=== PATIENT | male | born 1980 | race Caucasian/White ===

== ENCOUNTER 2020-10-27 07:08 | Day surgery (SDC) | payer BC, OTHER ==
[2020-10-21 15:21] LABS: BASOPHILS # (AUTO) 0.1 X10'3 (0-0.2); BASOPHILS % (AUTO) 1.4 % (0-1); EOSINOPHILS # (AUTO) 0.3 X10'3 (0-0.9); EOSINOPHILS % (AUTO) 4.9 % (0-6); LYMPHOCYTES # (AUTO) 1.8 X10'3 (1.1-4.8); LYMPHOCYTES % (AUTO) 34.5 % (21-51); MEAN CORPUSCULAR HEMOGLOBIN 30.4 PG (27.0-31.0); MEAN CORPUSCULAR HGB CONC 34.8 g/dL (33.0-36.5); MEAN CORPUSCULAR VOLUME 87.5 FL (78-98); MEAN PLATELET VOLUME 7.8 FL (7.4-10.4); MONOCYTES # (AUTO) 0.3 X10'3 (0-0.9); MONOCYTES % (AUTO) 6.7 % (2-12); NEUTROPHILS # (AUTO) 2.7 X10'3 (1.8-7.7); NEUTROPHILS % (AUTO) 52.5 % (42-75); PRE OP HEMATOCRIT 42.5 % (42.0-52.0); PRE OP HEMOGLOBIN 14.8 g/dL (14.0-17.9); PRE OP PLATELET COUNT 310 X10'3 (140-440); RED BLOOD COUNT 4.85 X10'6 (4.70-6.10); RED CELL DISTRIBUTION WIDTH 12.7 % (11.5-14.5)
[2020-10-21 15:36] LABS: ALBUMIN 3.9 G/DL (3.4-5.0); ALBUMIN/GLOBULIN RATIO 1.2 (1.1-1.5); ALKALINE PHOSPHATASE 84 IU/L (46-116); BLOOD UREA NITROGEN 9 MG/DL (7-18); BUN/CREATININE RATIO 9.3 (5.4-32.0); CALCIUM 8.6 MG/DL (8.5-10.1); CHLORIDE 104 MMOL/L (99-107); CREATININE 0.97 MG/DL (0.60-1.10); PRE OP ALT 48 U/L (30-65); PRE OP ANION GAP 7 (8-16); PRE OP AST 28 U/L (10-37); PRE OP BILIRUB, TOTAL 0.4 MG/DL (0.0-1.0); PRE OP GLUCOSE 150 MG/DL (70-104); PRE OP POTASSIUM 3.9 MMOL/L (3.4-5.1); PRE OP SODIUM 139 MMOL/L (135-145); TOTAL CARBON DIOXIDE 28.5 MMOL/L (24-32); TOTAL PROTEIN 7.1 G/DL (6.4-8.2); eGFR 86 ML/MIN
[2020-10-27] VITALS (9 sets, daily range): BP systolic 69–138; BP diastolic 66–87
[~2020-10-27] VITALS: Ht 190.5 cm; Wt 104.0 kg
[~2020-10-27 07:08] MED LIST: BUPIVAcaine/PF 2.5mg/ml (0.25%) 10ml vial ONE; INSULIN PUMP HUMALOG; LIDOcaine 1% 30ml preserv. free vial ONE; METH18TA23 PO; cefazolin/dext.iso 2gm/100ml IV ONE; famotidine 20mg tablet PO ONE; ringers solution, lacted 1,000 ML IV SCH
[2020-10-27] MEDS ORDERED: ringers solution, lacted 1,000 ML IV SCH (08:10)
[2020-10-27] MEDS ORDERED: ondansetron/PF 4mg/2ml inj IV PRN (08:10)
[2020-10-27] MEDS ORDERED: meperidine/PF 25mg/ml syringe IV PRN ×2 (08:10)
[2020-10-27] MEDS ORDERED: morphine 2 MG/ML inj. syringe IV PRN (08:10)
[2020-10-27] MEDS ORDERED: proCHLORperazine 10 MG/2 ml inj IV PRN (08:10)
[2020-10-27] MEDS ORDERED: morphine 4 MG/ML inj SYRINge IV PRN (08:10)
[2020-10-27] MEDS ORDERED: sevoflurane 250ml liquid IH ONE (08:35)
[2020-10-27] MEDS ORDERED: glycopyrrolate 0.2mg/ml inj ONE (08:35)
[2020-10-27] MEDS ORDERED: neostigmine methylsulfate 1 MG/ML 10ml vial ONE (08:35)
[2020-10-27] MEDS ORDERED: dexamethasone sod phosphate 10mg/ml inj ONE (08:35)
[2020-10-27] MEDS ORDERED: fentaNYL/PF 50MCG/1 ML 2ML syringe ONE (08:42)
[2020-10-27] MEDS ORDERED: midazolam 1 mg/ML 2ml injection ONE (08:42)
[2020-10-27] MEDS ORDERED: propofol inj 20 ML IV ONE (08:53)
[2020-10-27] MEDS ORDERED: LIDOcaine 2% (20mg/ml) 5ml vial ONE (08:53)
[2020-10-27] MEDS ORDERED: ondansetron/PF 4mg/2ml inj ONE ×2 (09:05→10:01)
[2020-10-27] MEDS ORDERED: rocuronium 10mg/ml inj IV ONE (09:05)
[2020-10-27] MEDS ORDERED: acetaminophen 1,000mg/100ml IV 100 ML IV ONE (09:39)
[2020-10-27] MEDS: meperidine/PF 25mg/ml syringe IV PRN ×2 (10:08→10:14)
[2020-10-27] MEDS ORDERED: HYDROcodone/acetaminophen 5mg/325mg tablet PO PRN ×2 (10:10)
--- NOTE | 2020-10-27 11:19 | NUR ---
PT VOID, BLADDER SCANNED POST VOID RESIDUAL 0 MLS. PT ABLE TO AMBULATE SAFELY, TOLERATING FLUIDS AND CRACKERS, NAUSEA RESOLVED, NORCO 5/325MG GIVEN FOR RIDE HOME. D/C INSTRUCTIONS GIVEN AND GONE OVER W/PT WHO VERBALIZED UNDERSTANDING. PT D/CD TO HOME VIA W/C TO PRIVATE VEHICLE W/O INCIDENT. Addendum: 10/27/20 at 1158 by Nereida Sevilla RN Amended: Links added.
== END 2020-10-27 11:19 | disposition home or self-care (01) ==
LOC: PAS 07:08
PROVIDERS: ATTEND Surgery
DX: K40.90 Unilateral inguinal hernia, without obstruction or gangrene, not specified as recurrent (principal); Z20.822 Contact with and (suspected) exposure to COVID-19; F41.9 Anxiety disorder, unspecified; E10.9 Type 1 diabetes mellitus without complications; F17.210 Nicotine dependence, cigarettes, uncomplicated; Z79.4 Long term (current) use of insulin; Z98.890 Other specified postprocedural states; Z96.41 Presence of insulin pump (external) (internal); Z86.14 Personal history of Methicillin resistant Staphylococcus aureus infection; Z79.899 Other long term (current) drug therapy; Z83.3 Family history of diabetes mellitus
CPT/HCPCS: 36415; 49650; 80053; 82948; 85025; 93005; C1781; J0131; J0780; J2001; J2175; J2250; J2405; J2704; J3010; J3490; S2900; U0003; U0005; Z7506; Z7508; Z7512; A4215; A4618; J1100; J2710; J7120

== ENCOUNTER 2024-09-25 14:55 | Emergency (ER) | payer OTHER ==
[~2024-09-25] VITALS: Ht 190.5 cm; Wt 113.5 kg
[~2024-09-25 14:55] MED LIST changes: -BUPIVAcaine/PF 2.5mg/ml (0.25%) 10ml vial ONE; -LIDOcaine 1% 30ml preserv. free vial ONE; +METH18TA PO; -METH18TA23 PO; -cefazolin/dext.iso 2gm/100ml IV ONE; -famotidine 20mg tablet PO ONE; -ringers solution, lacted 1,000 ML IV SCH
[2024-09-25 14:59] VITALS: BP 146/93; PULSE 73; RESP 16; TEMP 99.2; O2SAT 96
--- NOTE | 2024-09-25 15:30 | Physician Documentation ---
History of Present Illness ~ Chief Complaint: Neck pain Stated Complaint: NECK PAIN-WC Time Seen by MD: 15:14 HPI 44-year-old male presents to the ED with a worker's comp injury parents states he was walking out report of body and headache cross member wounds with the top of the head injury in his neck pain with range of motion Day of Onset: Sep 25, 2024 Medication Reconciliation Allergies: Coded Allergies: No Known Allergies (Unverified , 09/25/24) Scheduled Methylphenidate HCl (Methylphenidate ER), 1 TAB PO QAM, (Reported) Miscellaneous Medications [Insulin Pump Humalog], (Reported) Review of Systems All Other Systems at this time: Reviewed and Negative ROS As stated above in the HPI, otherwise all systems are reviewed and negative. Physical Exam Vital Signs: Temperature: 99.2, Source: Temporal, Heart Rate: 73, Respiratory Rate: 16, BP: 146/93, Pulse Oximetry: 96, Weight: 113.500 Physical Exam General: Alert, no apparent distress. Neck: Full range of motion. tender to Palpation in the left trapezius Respiratory: Lungs clear, no respiratory distress. Cardiovascular: Regular rate and rhythm, no murmurs. Extremities: Normal range of motion, no deformity. Neurologic: Oriented x4. Psychiatric: Normal mood and affect. Skin: Normal color, warm and dry. No edema, no ecchymosis. Progress Results/Orders Results/Orders Orders - JE UNGER [employer] Cervical Spine (09/25/24 15:31) Completed Orders - JE UNGER [employer] Cervical Spine (09/25/24 15:31) Ketorolac Trometh 15mg/Ml Vial (Toradol (09/25/24 15:35) Vital Signs 09/25/24 14:59 Temp 99.2 Pulse 73 Resp 16 B/P (MAP) 146/93 Pulse Ox 96 Medical Decision Making Findings CT scan showed no signs of acute fracture. Patient is not meet criteria for any red flag signs I offered Toradol ,patient refused states that he would rather take "salt water." Advised him to follow up with his worker's comp provider in the outpatient setting. Departure Disposition: HOME / SELF CARE / HOMELESS Impression: Primary Impression: Neck pain Additional Impressions: Strain of neck muscle Whiplash injury to neck Condition: Stable Discharge Instructions: Cervical Sprain, Whiplash Additional Instructions: Follow up with the worker's comp provider if you have any worsening symptoms or persistent symptoms that require further evaluation. Referrals: NO PRIMARY CARE PROVIDER (PCP) Signature Scribe Signature: t Attestation: Scribed for Je [employer]ger [employer] by Je Gaston NP . 09/25/24 22:54 JE UNGER NP Sep 25, 2024 15:30
[2024-09-25] MEDS: ketorolac trometh 15mg/ml vial 15 MG/ML ML IM ONE (15:54)
--- NOTE | 2024-09-25 15:59 | RADIOLOGY REPORT ---
EXAM: CT CT CERVICAL SPINE INDICATION: neck injury EXAM DATE: 09/25/2024 03:26 PM COMPARISON: None TECHNIQUE: Multiple axial CT images of the cervical spine were obtained using bone algorithm. Axial a nd coronal reformatting was done. Bone and soft tissue windows were reviewed. Radiation Dose Information: CT Dose: CTDI volume is 21.16 mGy. Dose-length product is 574.49 mGy*cm Findings: There is no evidence of an acute fracture or spondylolisthesis. The vertebral body heights are well-m aintained. The craniocervical junction and dens are intact. No evidence of degenerative disc disease. No neuroforaminal narrowing. No spinal canal stenosis. There is flattening of the cervical lordosis. The thyroid gland is unremarkable. The lung apices demonstrate no acute abnormality. The paraspinal a nd neck soft tissues appear within normal limits. C2-3: Normal C3-4: Normal C4-5: Normal C5-6: Normal C6-7: Normal C7-T1: Normal Impression: 1. No evidence of an acute fracture. 2. Straightening of the cervical lordosis which may be positional versus muscle spasm.
== END 2024-09-25 16:33 | disposition home or self-care (01) ==
LOC: ER 14:55
DX: S13.4XXA Sprain of ligaments of cervical spine, initial encounter (principal); R51.9 Headache, unspecified; X58.XXXA Exposure to other specified factors, initial encounter; Y93.01 Activity, walking, marching and hiking; Y92.89 Other specified places as the place of occurrence of the external cause; Y99.8 Other external cause status
CPT/HCPCS: 72125; 99284